=== PATIENT | male | born 1955 | race Caucasian/White ===

== ENCOUNTER → 2024-08-04 | Outpatient (REF) | payer MEDICARE ==
[~2024-08-04] MED LIST: IOPAMIDOL 370 MG/ML 100 ML INFUS..BTL INJ ONE; SODIUM CHLORIDE 0.9% 100 ML ONE
[2024-08-04 10:16] LABS: CREATININE, SERUM 0.97 mg/dL (0.72-1.25)
== END ==
LOC: CT 09:14
PROVIDERS: ATTEND Internal Medicine Cardiovascular Disease
DX: R07.2 Precordial pain (principal)
CPT/HCPCS: 36415; 75574; 75580; 82565; 84520; J7050; Q9967